=== PATIENT | male | born 1945 | race Caucasian/White ===

== ENCOUNTER 2021-05-03 11:41 | Emergency (ER) | payer MEDICARE, BC, SELFPAY ==
[2021-05-03 12:28] VITALS: PULSE 71; RESP 20; TEMP 36.9; O2SAT 96; BMI 29.6
--- NOTE | 2021-05-03 12:31 | HMH.EDUTC ---
[facility] [place] Disposition Clinical Impression: Exposure to COVID-19 virus Disposition: Home, Self-Care Condition on Discharge: Good Instructions: Preventing the Spread of Coronavirus Discharge Instructions Additional Instructions: You have been tested for COVID19. Please isolate yourself as if you are positive until test results received. Prescriptions: Albuterol Sulfate [Albuterol Sulfate Hfa] 2 puffs IH Q4HP PRN 10 Days #1 each PRN Reason: Shortness Of Breath Transmission Status: Received by [facility] guaiFENesin [Mucinex] 600 mg PO BID 10 Days #20 tab Transmission Status: Received by [facility] predniSONE [Prednisone 20mg Tab] 20 mg PO BID 5 Days #10 tab Transmission Status: Received by [facility] Referrals: Lake Adhikari MD [Primary Care Provider] - Time of Disposition: 12:47 Medical Decision Making - Neil Inquiry Pt receiving controlled substance: No Vital Signs: 05/03/21 12:28 05/03/21 12:34 Temperature 98.5 F 98.5 F Temperature Source Oral Pulse Rate 71 Pulse Rate [Left] 71 Respiratory Rate 20 20 Blood Pressure 142/70 H 02 Sat by Pulse Oximetry 96 Orders (Tests/Meds): ORDERS Category Date Time Status Covid-19 Nasal PCR ([facility]) Routine Lab 05/03/21 12:34 Ordered [facility] [place] HPI - General Stated complaint: covid test exposure Time Seen by Provider: 05/03/21 12:31 - History of Present Illness Provider Complaint: Patient exposed to COVID19 6 days ago. Now has had runny nose, chest congestion, cough X 2 days. No fever. Has been vaccinated. Onset (ago): day(s) (2) Relieving factors: none Exacerbating factors: none Associated symptoms: denies other symptoms Treatments prior to arrival: none - Related Data Previous Rx's Medication Instructions Recorded Albuterol Sulfate [Albuterol 2 puffs IH Q4HP PRN 10 Days #1 each 05/03/21 Sulfate Hfa] guaiFENesin [Mucinex] 600 mg PO BID 10 Days #20 tab 05/03/21 predniSONE [Prednisone 20mg 20 mg PO BID 5 Days #10 tab 05/03/21 Tab] Allergies Allergy/AdvReac Type Severity Reaction Status Date / Time INGREDIENT: NO KNOWN - NO Allergy Unknown Uncoded 08/09/17 14:25 KNOWN DRUG ALLERGY [facility] History - Hepatitis A Screen Attestation statement:: This patient has been screened for Hepatitis A risk factors. I have reviewed the patient's past medical history: Yes ROS Obtained: Yes All systems reviewed & no additional complaints - Constitutional Constitutional: Reports body ache, Denies fever(s) - ENT Ears, Nose, Mouth, and Throat: Reports nasal discharge - Respiratory Respiratory: Reports cough Physical Exam - General General appearance: alert, in no apparent distress - Head Head exam: normocephalic - Eye Eye exam: Present: PERRL - ENT ENT exam: Present: normal oropharynx, TM's normal bilaterally - Neck Neck exam: Present: normal inspection. Absent: lymphadenopathy - Chest Chest inspection: Present: normal inspection, symmetric chest wall rise - Respiratory Respiratory exam: Present: normal lung sounds bilaterally - Cardiovascular Cardiovascular exam: Present: regular rate, normal rhythm - Neurological Exam Neurological exam: Present: alert, oriented X3 - Psychiatric Psychiatric exam: Present: normal affect, normal mood - Skin Skin exam: Present: warm, dry, intact
[2021-05-03 12:34] VITALS: BP 142/70; PULSE 71; RESP 20; TEMP 36.9
--- NOTE | 2021-05-04 10:47 | PC.NURSE ---
Notified pt of positive COVID results
--- NOTE | 2021-05-04 10:49 | PC.NURSE ---
PATIENT NOTIFIED OF POSITIVE COVID TEST AT THIS TIME
== END 2021-05-03 12:52 | disposition home or self-care (01) ==
PROVIDERS: Emergency Provider Physician Assistant; PCP Family Medicine
DX: U07.1 COVID-19 (principal); R05 Cough
CPT/HCPCS: 99202; C9803; G0463; U0003; U0005

== ENCOUNTER 2024-12-20 08:28 | Emergency (ER) | payer OTHER, SELFPAY ==
[2024-12-20 08:49] VITALS: BP 138/76; PULSE 76; RESP 14; TEMP 36.9; O2SAT 96; BMI 29.5
--- NOTE | 2024-12-20 09:26 | HMH.EDGENADL ---
Discharge Plan Disposition Patient Disposition: Home, Self-Care Chief Complaint: Animal Bite Prescriptions Prescriptions: No Action prednisone 20 MG tablet 20 mg PO BID 5 Days Qty: 10 0RF albuterol sulfate 8.5 GM HFA aerosol inhaler 2 puffs IH Q4HP PRN (Reason: Shortness Of Breath) 10 Days Qty: 1 0RF guaifenesin 600 MG tablet extended release 12hr 600 mg PO BID 10 Days Qty: 20 0RF Referrals Follow up/Referrals: Lake Adhikari MD [Primary Care Provider] - See instructions Activity Restrictions/Add. Instructions Additional Instructions/Restrictions: Call your family doctor to establish care for this visit to the emergency department and schedule follow-up within 48 hours to ensure improvement. If you have any worsening of your condition or any other concerning signs or symptoms, return to the emergency department or your primary care doctor for further evaluation. Take Tylenol 1000 mg every 6 hours (4 times daily) and ibuprofen 400 mg every 6 hours (4 times daily) as needed with food and water to prevent GI upset and kidney damage. Clinical Impressions Clinical Impression: Dog bite Instructions Patient Instructions: Animal Bites Print Language Print Language: Tanzanian Discharge ED Provider: Gaurav Anderson General Adult HPI General Chief complaint: Animal Bite Stated complaint: [id number] Dog bite R ankle- pain in R thigh and calf Time Seen by Provider: 12/20/24 08:44 Mode of Arrival: Ambulatory Source of Information: Patient Description of Symptoms (Recalled from ER Triage Doc. by RN): pt reports he was attacked by a black and white pittbull this morning around 0745 while his grandson was at the bus stop. pt presents with a puncture wound to the outer aspect of his R ankle. pt also reports R thigh pain and believes he pulled a muscle when kicking at the dog trying to get it away. pt reports throbbing 11/10 pain in his R thigh and 3/10 pain in his R ankle. The manager talent acquisition of the dog reports it is UTD on vaccines. 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 pt needs a TDAP and is agreeable. History of Present Illness HPI narrative: Please note that above description of symptoms, in this electronic medical record under categorization of recalled from ER triage doctor by RN are reflective of an initial nursing assessment, however, is not reflective of my full history and physical exam that was personally taken and clarified. Consequentially, this preceding description of symptoms, which may include the patient's categorized chief complaint in the EMR, do not reflect my personal clinical impression, and the ultimate description of history of present illness and patient stated complaints should be deferred to this section of the note. Unless stated otherwise or congruent with this section of the note, additional signs, symptoms, or incongruence should be interpreted as inaccurate with my clinical impression. Related Data Previous Rx's ?Medication ?Instructions ?Recorded albuterol sulfate 90 mcg/actuation 2 puffs IH Q4HP PRN Shortness Of 05/03/21 aerosol inhaler Breath 10 days #1 ea guaifenesin 600 mg tablet, 600 mg PO BID 10 days #20 tabs 05/03/21 extended release 12 hr prednisone 20 mg tablet 20 mg PO BID 5 days #10 tabs 05/03/21 Allergies Allergy/AdvReac Type Severity Reaction Status Date / Time No Known Allergies Allergy Verified 12/20/24 08:58 [facility] Disclaimer: The information contained in this section may have been updated after the patient was seen, as this information can be updated by other users. Social History Smoking Status: Never smoker alcohol intake: never current occupational status: retired Travel in the last 8 weeks?: None ROS Obtained: Yes All systems reviewed & no additional complaints except as documented Physical Exam General General appearance: alert Head Head exam: atraumatic and normocephalic Eye Eye exam: Present normal appearance, PERRL and EOMI Neck Neck exam: Present normal inspection, full ROM and trachea midline Respiratory Respiratory exam: Absent respiratory distress, wheezes, stridor, accessory muscle use or prolonged expiratory phase Cardiovascular Cardiovascular exam: Present other (Pulses equal symmetric in upper and lower extremities) Abdominal Exam Abdominal exam: Present soft; Absent distention, tenderness or pulsatile mass Extremities Exam Extremities exam: Absent edema Neurological Exam Neurological exam: Present alert, oriented X3 and CN II-XII intact; Absent motor sensory deficit Skin Skin exam: Present warm and dry; Absent diaphoresis or erythema Medical Decision Making Medical Records Medical records reviewed: Yes I reviewed the patient's medical records. Screening: Per USPSTF and CDC recommendations, given the prevalence of disease in our region, it is our hospital?s policy to screen for HIV and viral Hepatitis for all patients aged 18 and over and those with ongoing risk factors. Neil Inquiry Pt receiving controlled substance: No Neil was queried for this patient: No Vital Signs: 12/20/24 08:49 Temperature 98.5 F Temperature Source Oral Pulse Rate [Left] 76 Respiratory Rate 14 Blood Pressure [Right Arm] 138/76 Blood Pressure Mean [Right Arm] 96 Blood Pressure Source [Right Arm] Automatic Cuff Blood Pressure Position [Right Arm] Sitting 02 Sat by Pulse Oximetry 96 Oxygen Delivery Method Room Air Orders (Tests/Meds): ED MEDICATIONS Discontinued Medications Generic Name Dose Route Start Last Admin Trade Name Freq PRN Reason Stop Dose Admin Tetanus/Diphtheria Toxoids 0.5 ml 12/20/24 08:56 Tetanus-Diphth Toxoid, Adult 0.5ml Syr IM 12/20/24 08:57 .ONCE ONE Medical Decision Narrative: 79-year-old male presenting with dog bite. Multiple other patients bitten as well. Dog is up to 58 on rabies, per police, dog manager talent acquisition. But dog is also in quarantine at the [facility] currently. Patient got bitten on his right ankle, came in for further evaluation. Does not remember when his last tetanus vaccination was, that will be updated today. On physical exam, patient very clinically well. Right lower extremity neurovascular intact, able to ambulate, range of motion intact, but he is having muscle spasms in his lateral right thigh as well as has superficial abrasion with hematoma overlying his lateral malleolus. Does not appear to break skin or involve subcutaneous tissue. Tdap to be updated here. 1 dose of oral Decadron given for probable partial quadriceps tear laterally. Imaging considered, not deemed necessary because patient skin is intact, hemodynamically stable, no other trauma sustained. Because patient at baseline without signs or symptoms of clinical decompensation, deemed appropriate for discharge. I discussed my clinical impression with patient and answered all questions. At this time, the evidence for any other entities in the differential is insufficient to warrant any further testing or ED observation. This was explained as well. Advisory was given that persistent or worsening symptoms require further evaluation. I confirmed the understanding of this discussion. [employer] disclaimer Much of this encounter note is an electronic negative cutter spoken language to printed text. Electronic negative cutter of the spoken language may permit errors. Although I have reviewed the note, some errors may still exist. Critical Care Critical Care Time Critical Care Time: No
[2024-12-20] MEDS: DEXAMETHASONE 4MG TABLET 10 MG PO (09:33)
[2024-12-20] MEDS: TET/DIPHTH/PERT-ADULT 0.5ML SYRINGE 0.5 ML IM (09:33)
[2024-12-20 09:41] VITALS: BP 138/76; PULSE 76; RESP 16; TEMP 36.9; O2SAT 96
[2024-12-20] MEDS: ACETAMINOPHEN 500MG TAB 1000 MG PO (09:45)
[2024-12-20] MEDS: IBUPROFEN 600 MG TABLET PO (09:45)
== END 2024-12-20 09:51 | disposition home or self-care (01) ==
PROVIDERS: Emergency Provider Emergency Medicine; PCP Family Medicine
DX: S71.151A Open bite, right thigh, initial encounter (principal); M79.651 Pain in right thigh; M62.838 Other muscle spasm; S91.051A Open bite, right ankle, initial encounter; W54.0XXA Bitten by dog, initial encounter; Z23 Encounter for immunization
CPT/HCPCS: 90471; 90715; 99283; J8540